=== PATIENT | female | born 1960 | race Caucasian/White ===

== ENCOUNTER 2022-11-12 13:14 | Emergency (ER) | payer OTHER ==
[~2022-11-12] VITALS: Ht 165.1 cm; Wt 63.5 kg
--- NOTE | 2022-11-12 13:18 | NUR ---
biba taken to bed 1
[2022-11-12 13:19] VITALS: BP 185/125
--- NOTE | 2022-11-12 14:21 | NUR ---
Dr. Owen evaluating pt at bedside
--- NOTE | 2022-11-12 14:24 | NUR ---
Female Concrete Finisher Apprentice accompanied female patient for BREAST Exam.
--- NOTE | 2022-11-12 14:35 | NUR ---
62/F BRYANNA FROM PCP OFFICE. STATES PATIENT WAS BEEN SEEN FOR BLOOD WORK AND LEFT BREAST PAIN, STATED THE OFFICE STAFF CALLED 911 BECAUSE PATIENTS BP 205/112, ON ARRIVAL BP 185/125. PATIENT A&OX4, AMBULATORY, STATES LEFT BREAST PAIN 02/23, DULL/CONSTANT, NON-RADIATING. PATIENT REPORTS SHE HAS NOT TAKEN HER BP MEDS X2 DAYS. DENIES HEADACHES, BLURRY VISION, DIZZINESS, CHEST PAIN, SOB, FEVER, CHILLS. BED LOCKED IN LOWEST POSITION, SIDE RAILS X 1. PMH: DM, HTN NKDA
[2022-11-12 14:54] VITALS: BP 169/71
--- NOTE | 2022-11-12 14:54 | NUR ---
Patient discharged with v/s stable. Written and verbal after care instructions given and explained. Patient verbalized understanding. Ambulatory with steady gait. All questions addressed prior to discharge. Advised to follow up with PMD.
== END 2022-11-12 14:54 | disposition home or self-care (01) ==
LOC: MED 13:14
DX: N64.4 Mastodynia (principal); I10 Essential (primary) hypertension; E11.9 Type 2 diabetes mellitus without complications; Z98.890 Other specified postprocedural states
CPT/HCPCS: 99283

== ENCOUNTER 2024-04-28 06:45 | Day surgery (SDC) | payer OTHER ==
[~2024-04-28] VITALS: Ht 154.9 cm; Wt 59.4 kg
[2024-04-28] MEDS ORDERED: diphenhydrAMINE 50 MG/ML VIAL ONE (07:52)
[2024-04-28] MEDS ORDERED: fentaNYL citrate 0.05 MG/ML VIAL ONE (07:53)
[2024-04-28] MEDS ORDERED: MIDAZOLAM 5 MG/5 ML VIAL ONE (07:53)
[2024-04-28] MEDS ORDERED: LIDOCAINE 2% 100 MG/5 ML UJET TP ONE (07:53)
[2024-04-28] MEDS: MIDAZOLAM 2 MG/2 ML VIAL IVP ONE (08:15)
[2024-04-28] MEDS: fentaNYL citrate 0.05 MG/ML VIAL IVP ONE (08:17)
== END 2024-04-28 11:40 | disposition home or self-care (01) ==
LOC: MDS 06:45 → MMU 06:47 → MDS 11:40
PROVIDERS: ATTEND Internal Medicine Gastroenterology
DX: Z12.11 Encounter for screening for malignant neoplasm of colon (principal); D12.2 Benign neoplasm of ascending colon; E78.5 Hyperlipidemia, unspecified; E11.9 Type 2 diabetes mellitus without complications; R74.01 Elevation of levels of liver transaminase levels; I10 Essential (primary) hypertension; J45.909 Unspecified asthma, uncomplicated; M19.90 Unspecified osteoarthritis, unspecified site; R10.11 Right upper quadrant pain; Z87.898 Personal history of other specified conditions; Z79.899 Other long term (current) drug therapy
CPT/HCPCS: 45385; 82948; J2250; J3010; J1200